=== PATIENT | male | born 1935 | race Caucasian/White ===

== ENCOUNTER → 2020-08-08 | Day surgery (SDC) | payer MEDICARE ==
[~2020-08-08] VITALS: Ht 172.7 cm; Wt 190.0 kg
[~2020-08-08] MED LIST: ATOR20TA58 PO; CLOP75TA PO; ESCITALOPRAM OX10 MG PO; HYDR12.575 PO; IV RINGERS,LACTATED 1000ML 1,000 ML IV SCH; LIDOCAINE 2% PF 5 ML VIAL. ONE; METO-239 PO; POTA10TA6 PO; PROPOFOL 10 MG/ML (20ML) VIAL. IV ONE; TAMS0.4C97 PO; VALS80TA3 PO
[2020-08-08 08:13] VITALS: BP 144/83
[2020-08-08 09:43] VITALS: BP 140/80
--- NOTE | 2020-08-10 18:06 | PATHOLOGY ---
[facility] Accession Number: [id number] . 01 Material submitted: . PART A: colon - DESCENDING COLON POLYP. Modifiers: descending PART B: rectum - RECTAL TUMOR . 01 Clinical history: . DIARRHEA COLONOSCOPY FOR B- R/O CANCER . 02 Diagnosis: A. Colon biopsies, descending colon polyp: - Tubular adenoma. . B. Colorectal biopsies, rectal tumor: - Tubular adenoma. (JPM:pit; 08/10/2020) RUST 08/10/2020 1528 Local . 02 Comment: Sections of the descending colon biopsy reveal a tubular adenoma showing no high-grade dysplasia or evidence of malignancy. . The endoscopic pictures of the rectal tumor are reviewed. Sections of the rectal tumor reveal multiple fragments of tubular adenoma. There is no evidence of high-grade dysplasia or malignancy within this biopsy. (JPM:pit; 08/10/2020) . 02 Electronically signed: . Alen Barber MD, Pathologist NPI- [id number] . 01 Gross description: . A. The specimen is received in formalin, labeled "Matthews, Scar, descending colon polyp" received as one fragment of soft [place]enz[place]a tissue measuring up to 0.4 cm. Entirely submitted in A1. . B. The specimen is received in formalin, labeled "Matthews, Scar, rectal tumor rule out cancer" received as multiple fragments of soft valenzuela tissue measuring up to 0.3 cm. Entirely submitted in B1. ([facility]; 08/09/2020) INESSA/INESSA 08/09/2020 1622 Local . 02 Pathologist provided ICD-10: D12.4, D12.8 . 02 CPT . 661274, 291652 Specimen Comment: A courtesy copy of this report has been sent to [phone], [phone] Specimen Comment: [phone] Specimen Comment: Report sent to / DR RAMIREZ Performed at: [address] [id number] MD Earnest Boyle MD Phone: [phone] Performed at: [facility] [address] [place], [place] [id number] MD Alen Barber MD Phone: [phone]
== END | disposition home or self-care (01) ==
LOC: ENDOS 07:28
PROVIDERS: ATTEND Internal Medicine Gastroenterology
DX: R19.7 Diarrhea, unspecified (principal); K64.8 Other hemorrhoids; D12.4 Benign neoplasm of descending colon; D12.8 Benign neoplasm of rectum; K57.30 Diverticulosis of large intestine without perforation or abscess without bleeding; K63.89 Other specified diseases of intestine; I10 Essential (primary) hypertension; E78.00 Pure hypercholesterolemia, unspecified; K21.9 Gastro-esophageal reflux disease without esophagitis; M19.90 Unspecified osteoarthritis, unspecified site; G47.30 Sleep apnea, unspecified; Z85.828 Personal history of other malignant neoplasm of skin; Z86.73 Personal history of transient ischemic attack (TIA), and cerebral infarction without residual deficits; Z79.899 Other long term (current) drug therapy; Z98.890 Other specified postprocedural states; Z88.5 Allergy status to narcotic agent; Z88.8 Allergy status to other drugs, medicaments and biological substances
CPT/HCPCS: 45380; 45385; J2704